=== PATIENT | male | born 1980 | race Caucasian/White ===

== ENCOUNTER 2022-05-22 13:18 | Emergency (ER) | payer SELFPAY ==
[~2022-05-22] VITALS: Ht 187 cm; Wt 104.3 kg
[2022-05-22] MEDS ORDERED: fentaNYL INJ 100 MCG/2 ML AMP IVP STA (13:34)
[2022-05-22] MEDS ORDERED: ONDANSETRON 4 MG/2 ML (SDV) Z0FRAN IVP ONE (13:45)
[2022-05-22 13:47] LABS: HEMATOCRIT 46 % (40-54); HEMOGLOBIN 14.9 g/dL (13.3-17.7); MEAN CORPUSCULAR HEMOGLOBIN 30 pg (25-34); MEAN CORPUSCULAR HGB CONC 33 g/dL (32-36); MEAN CORPUSCULAR VOLUME 92 fL (80-99); MEAN PLATELET VOLUME 8.5 fL (9.0-12.2); PLATELET COUNT 225 10^3/uL (130-400); WHITE BLOOD COUNT 4.8 10^3/uL (4.3-11.0)
[2022-05-22 13:50] LABS: ALBUMIN 4.8 GM/DL (3.2-4.5); CHLORIDE 102 MMOL/L (98-107); SODIUM 139 MMOL/L (135-145)
[2022-05-22 13:51] LABS: CALCIUM 9.9 MG/DL (8.5-10.1)
[2022-05-22 13:52] LABS: GLUCOSE 86 MG/DL (70-105); TOTAL PROTEIN 7.9 GM/DL (6.4-8.2)
[2022-05-22 13:53] LABS: CARBON DIOXIDE 24 MMOL/L (21-32)
[2022-05-22 13:56] LABS: ALKALINE PHOSPHATASE 71 U/L (40-136); CREATININE SERUM 1.12 MG/DL (0.60-1.30); GFR ESTIMATED 84
[2022-05-22 13:57] LABS: BILIRUBIN,DIRECT 0.1 MG/DL (0.0-0.3); BUN/CREATININE RATIO 12
[2022-05-22 13:59] LABS: ALANINE AMINOTRANSFERASE 23 U/L (0-55)
[2022-05-22] MEDS ORDERED: IOHEXOL 350 MG/ML 100 ML (OMNIPAQUE 350) VIAL IV ONE (14:00)
[2022-05-22] MEDS ORDERED: HOLD METFORMIN - RECEIVED CONTRAST 20 ML VIAL IV SCH (14:00)
[2022-05-22] MEDS ORDERED: HYDROmorphone 2 MG/ML VIAL (DILAUDID) IV ONE ×4 (14:00→17:30)
[2022-05-22] MEDS ORDERED: NS 100 ML (IVPB) BAG IV ONE (14:00)
[2022-05-22 14:04] LABS: BILIRUBIN,INDIRECT 0.3 MG/DL; BILIRUBIN,TOTAL 0.4 MG/DL (0.1-1.0)
[2022-05-22] MEDS ORDERED: ORPHENADRINE 60 MG/2 ML (NORFLEX) AMP (ED ONLY) IV ONE (14:15)
--- NOTE | 2022-05-22 14:43 | Diagnostic Imaging Report ---
PROCEDURE: CT thoracic and lumbar spine without contrast. TECHNIQUE: Multiple contiguous axial images were obtained through the thoracic and lumbar spine without the use of intravenous contrast. Sagittal and coronal reformations were then performed. All CT scans use one or more of the following dose optimizing techniques: automated exposure control, MA and/or KvP adjustment based on a patient size and exam type, or iterative reconstruction. INDICATION: Patient had a 10' fall with spinal pain T-spine: Partially visualized lower cervical ACDF noted. The thoracic vertebral statures are normal. Their alignment is anatomic. The neural arch is intact. The visualized posterior ribs segments and transverse processes intact. There is no paravertebral mass, hemorrhage or fluid collection evident. No significant canal stenosis. The facet relationships normal. Visualized portions of the lungs, mediastinum and pleura unremarkable. There is a small hiatal hernia. Lumbar spine: Note is made of bilateral renal calculi nonobstructing. Lumbar statures normal. The pedicles and pars intact. No acute or suspicious endplate irregularity. Transverse processes and neural arch is intact. No significant stenosis. The alignment normal. IMPRESSION: No thoracolumbar spinal injury demonstrated. Hiatal hernia and nephrolithiasis noted incidentally. Dictated by: Dictated on workstation # [id number]
--- NOTE | 2022-05-22 14:52 | Diagnostic Imaging Report ---
PROCEDURE: CT chest, abdomen, and pelvis with contrast. TECHNIQUE: Multiple contiguous axial images were obtained through the chest, abdomen, and pelvis after the administration of intravenous contrast. Auto Exposure Controls were utilized during the CT exam to meet ALARA standards for radiation dose reduction. INDICATION: Trauma, fall from height. COMPARISON: No prior studies are available for comparison. FINDINGS: CT CHEST: No mediastinal hematoma is identified. No pericardial or pleural fluid is detected. No pulmonary contusions or pneumothorax is detected. The bony structures are intact. IMPRESSION: Unremarkable CT of the chest. CT ABDOMEN AND PELVIS: No focal liver or splenic laceration is identified. The gallbladder is unremarkable. The pancreas, adrenal glands, and kidneys are unremarkable. The aorta is nonaneurysmal. The bowel loops are of normal caliber. No free fluid or evidence of hemoperitoneum is detected. The bladder is decompressed. The prostate is unremarkable. The bony structures are nonacute. IMPRESSION: No evidence of abdominal or pelvic visceral injury. Dictated by: Dictated on workstation # [id number]
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
[2022-05-22] MEDS ORDERED: methylPREDNISolone 125 MG (Solu-MEDROL) VIAL IVP ONE (17:30)
[2022-05-22] MEDS ORDERED: KETOROLAC 30 MG/ML VIAL IVP ONE (17:30)
[2022-05-22 17:48] LABS: BILIRUBIN,URINE NEGATIVE (NEGATIVE); CLARITY,URINE SL CLOUDY; COLOR,URINE YELLOW; GLUCOSE, URINE (UA) NEGATIVE (NEGATIVE); KETONES,URINE NEGATIVE (NEGATIVE); LEUKOCYTE ESTERASE ,URINE NEGATIVE (NEGATIVE); NITRITE,URINE NEGATIVE (NEGATIVE); PH,URINE 5.5 (5-9); PROTEIN,URINE NEGATIVE (NEGATIVE)
[2022-05-22] MEDS ORDERED: METH4TAB10 PO (17:48)
[2022-05-22] MEDS ORDERED: OXYC1TAB87 PO (17:48)
[2022-05-22] MEDS ORDERED: CYCL10TA25 PO (17:48)
[2022-05-22 18:06] LABS: AMPHETAMINE SCREEN, URINE NEGATIVE (NEGATIVE); BARBITURATE SCREEN URINE NEGATIVE (NEGATIVE); BENZODIAZEPINES SCREEN URINE NEGATIVE (NEGATIVE); CANNABINOID SCREEN, URINE NEGATIVE (NEGATIVE); COCAINE SCREEN URINE NEGATIVE (NEGATIVE); METHADONE STAT NEGATIVE (NEGATIVE); OPIATE SCREEN URINE POSITIVE (NEGATIVE); OXYCODONE STAT NEGATIVE (NEGATIVE); PROPOXYPHENE STAT NEGATIVE (NEGATIVE); TRICYCLIC ANTIDEPRESSANTS SCRE NEGATIVE (NEGATIVE)
[2022-05-22 18:11] LABS: BACTERIA,URINE NEGATIVE /HPF
[2022-05-22 18:15] VITALS: BP 132/90
== END 2022-05-22 18:14 | disposition home or self-care (01) ==
LOC: ER 13:21
DX: S30.0XXA Contusion of lower back and pelvis, initial encounter (principal); M54.16 Radiculopathy, lumbar region; M54.6 Pain in thoracic spine; F17.210 Nicotine dependence, cigarettes, uncomplicated; W11.XXXA Fall on and from ladder, initial encounter
CPT/HCPCS: 71260; 72128; 72131; 74177; 80048; 80076; 80306; 81000; 85027; 93041; 99285; G0480; 36415; 80320

== ENCOUNTER 2022-06-14 21:16 | Emergency (ER) | payer SELFPAY ==
[~2022-06-14 21:16] MED LIST: CYCL10TA25 PO; METH4TAB10 PO; OXYC1TAB87 PO
[2022-06-14 21:48] VITALS: BP 160/88
[2022-06-14] MEDS ORDERED: ONDANSETRON 4 MG/2 ML (SDV) Z0FRAN IVP ONE (23:15)
[2022-06-14] MEDS ORDERED: fentaNYL INJ 100 MCG/2 ML AMP IVP ONE (23:15)
--- NOTE | 2022-06-14 23:15 | ED Fall/Injury ---
General Chief Complaint: Trauma-Non Activation Stated Complaint: FALL - BACK/ NECK PAIN Nursing Triage Note: FALL FROM STARIS. C/O BACK PAIN Source: patient Exam Limitations: no limitations History of Present Illness Date Seen by Provider: Jun 14, 2022 Time Seen by Provider: 22:50 Initial Comments This 41-year-old gentleman presents to the emergency room with complaints of pain in the neck and left shoulder after a fall on stairs. He reports the incident occurred around [id number]. His right foot slipped out from underneath him while walking down the stairs causing him to fall backward and onto his left side. He then slid down the stairs. He describes no loss of consciousness. 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 He has pain specifically in the left shoulder and the neck. He has had prior cervical spine surgery with scars evident on exam. He has not taken any medications for the pain and reports that he came directly to the emergency room after the incident happened. C-collar was applied during my assessment. He is grossly neurologically intact during interview and exam. He appeared in distress during my interview. However, from my seated work station around the corner, no distress was observed when staff was not physically present in his [facility] [employer] [place]. Of note, patient was also seen by me in this ER May 22, 2022 for severe lower back pain after a fall off a ladder. There was concern for serious lumbar and/or pelvic injury. No injury was found on imaging or exam and patient walked out of the ER upon discharge in stable condition. He required and extraordinary amount of opioid pain medication during that encounter including multiple doses of Dilauded. Based on his demeanor during the visit, it was surprising not injuries were found on exam or imaging. Allergies and Home Medications Allergies Coded Allergies: Benzodiazepines (Verified Adverse Reaction, Intermediate, Agitation, 05/23/22) Paradoxical effect, causes agitation NSAIDS (Non-Steroidal Anti-Inflamma (Verified Adverse Reaction, Intermediate, Gastric irritation, 05/23/22) Exacerbation of gastroesophageal reflux and gastritis Patient Home Medication List Home Medication List Reviewed: Yes Cyclobenzaprine HCl (Cyclobenzaprine HCl) 10 Mg Tablet, 10 MG PO Q8H PRN for SPASMS Prescribed by: WENDY PFEIFFER on 05/22/22 684 Methylprednisolone (Methylprednisolone Dose Pack) 4 Mg Tab.ds.pk, 4 MG PO UD Prescribed by: WENDY PFEIFFER on 05/22/221747 Oxycodone HCl/Acetaminophen (Percocet 5-325 mg Tablet) 1 Each Tablet, 1-2 TAB PO Q4H PRN for PAIN-MODERATE (5-7) Prescribed by: WENDY PFEIFFER on 05/22/221748 Review of Systems Review of Systems Constitutional: no symptoms reported Eyes: No Symptoms Reported Ears, Nose, Mouth, Throat: no symptoms reported Respiratory: no symptoms reported Cardiovascular: no symptoms reported Gastrointestinal: nausea Genitourinary: no symptoms reported Musculoskeletal: see HPI Skin: no symptoms reported Psychiatric/Neurological: See HPI Past Gtaaknw-Fmleao-Abhbcc Hx Patient Social History Tobacco Use?: Yes Tobacco type used: Cigarettes Smoking Status: Current Everyday Smoker Substance use?: No Alcohol Use?: No Pt feels they are or have been: No Past Medical History Surgery/Hospitalization HX: pmh: kidney stones, hernia sx, cerviacl spin sx, testicular torsion sx. Surgeries: Yes Abdominal, Orthopedic, Testicular Respiratory: No Cardiac: No Neurological: Yes Traumatic Brain Injury Reproductive Disorders: No Genitourinary: No Gastrointestinal: Yes Gastroesophageal Reflux Musculoskeletal: Yes (Chronic pain from prior spine injuries and surgeries) Endocrine: No HEENT: No Cancer: No Psychosocial: No Integumentary: No Physical Exam Vital Signs Vital Signs - First Documented 06/14/22 21:48 Temp 36.7 Pulse 90 Resp 18 B/P (MAP) 160/88 (112) Pulse Ox 98 O2 Delivery Room Air Capillary Refill : Less Than 3 Seconds Height, Weight, BMI Height: '" Weight: lbs. oz. kg; 29.00 BMI Method: General Appearance: WD/WN, mild distress HEENT: PERRL/EOMI, normal ENT inspection Neck: tender midline (posterior cervical spine), other (Surgical scar on posterior neck) Cardiovascular: regular rate, rhythm, no edema, no murmur Respiratory: lungs clear, normal breath sounds, no respiratory distress Extremities: normal inspection, other (Tenderness over the left shoulder) Neurologic/Psychiatric: no motor/sensory deficits, alert, oriented x 3, other (Agitated) Skin: normal color, warm/dry Suly Coma Score Best Eye Response: (4) Open Spontaneously Best Verbal Response: (5) Oriented Best Motor Response: (6) Obeys Commands Crane Total: 15 Progress/Results/Core Measures Results/Orders Lab Results Laboratory Tests Test 06/14/22 23:12 06/14/22 23:29 Range/Units White Blood Count 4.6 4.3-11.0 10^3/uL Red Blood Count 4.38 4.30-5.52 10^6/uL Hemoglobin 12.9 L 13.3-17.7 g/dL Hematocrit 40 40-54 % Mean Corpuscular Volume 90 80-99 fL Mean Corpuscular Hemoglobin 30 25-34 pg Mean Corpuscular Hemoglobin Concent 33 32-36 g/dL Red Cell Distribution Width 13.4 10.0-14.5 % Platelet Count 203 130-400 10^3/uL Mean Platelet Volume 9.1 9.0-12.2 fL Immature Granulocyte % (Auto) 1 % Neutrophils (%) (Auto) 55 42-75 % Lymphocytes (%) (Auto) 29 12-44 % Monocytes (%) (Auto) 12 0-12 % Eosinophils (%) (Auto) 2 0-10 % Basophils (%) (Auto) 1 0-10 % Neutrophils # (Auto) 2.5 1.8-7.8 10^3/uL Lymphocytes # (Auto) 1.3 1.0-4.0 10^3/uL Monocytes # (Auto) 0.6 0.0-1.0 10^3/uL Eosinophils # (Auto) 0.1 0.0-0.3 10^3/uL Basophils # (Auto) 0.0 0.0-0.1 10^3/uL Immature Granulocyte # (Auto) 0.0 0.0-0.1 10^3/uL Sodium Level 136 135-145 MMOL/L Potassium Level 4.2 3.6-5.0 MMOL/L Chloride Level 104 98-107 MMOL/L Carbon Dioxide Level 21 21-32 MMOL/L Anion Gap 11 5-14 MMOL/L Blood Urea Nitrogen 17 7-18 MG/DL Creatinine 0.90 0.60-1.30 MG/DL Estimat Glomerular Filtration Rate 109 BUN/Creatinine Ratio 19 Glucose Level 87 70-105 MG/DL Calcium Level 9.4 8.5-10.1 MG/DL Corrected Calcium 9.1 8.5-10.1 MG/DL Total Bilirubin 0.3 0.1-1.0 MG/DL Aspartate Amino Transf (AST/SGOT) 21 5-34 U/L Alanine Aminotransferase (ALT/SGPT) 16 0-55 U/L Alkaline Phosphatase 69 40-136 U/L Total Protein 7.1 6.4-8.2 GM/DL Albumin 4.4 3.2-4.5 GM/DL Serum Alcohol < 10 <10 MG/DL Urine Opiates Screen NEGATIVE NEGATIVE Urine Oxycodone Screen NEGATIVE NEGATIVE Urine Methadone Screen NEGATIVE NEGATIVE Urine Propoxyphene Screen NEGATIVE NEGATIVE Urine Barbiturates Screen NEGATIVE NEGATIVE Ur Tricyclic Antidepressants Screen NEGATIVE NEGATIVE Urine Phencyclidine Screen NEGATIVE NEGATIVE Urine Amphetamines Screen NEGATIVE NEGATIVE Urine Methamphetamines Screen NEGATIVE NEGATIVE Urine Benzodiazepines Screen NEGATIVE NEGATIVE Urine Cocaine Screen NEGATIVE NEGATIVE Urine Cannabinoids Screen NEGATIVE NEGATIVE My Orders Orders - WENDY BRADSHAW MD Alcohol (06/14/22 23:07) Cbc With Automated Diff (06/14/22 23:07) Comprehensive Metabolic Panel (06/14/22 23:07) Drug Screen Stat (Urine) (06/14/22 23:07) Ed Iv/Invasive Line Start (06/14/22 23:07) Fentanyl Inj (Sublimaze Injection) (06/14/22 23:15) Ct Head/Cervical Spine Wo (06/14/22 23:08) Shoulder, Left, 3 Views (06/14/22 23:08) Ondansetron Injection (Zofran Injectio (06/14/22 23:15) Ketorolac Injection (Toradol Injection) (06/15/22 00:30) Medications Given in ED Vital Signs/I&O 06/14/22 21:48 Temp 36.7 Pulse 90 Resp 18 B/P (MAP) 160/88 (112) Pulse Ox 98 O2 Delivery Room Air Blood Pressure Mean: 112 Progress Progress Note #1: Time: 23:23 Progress Note Patient was interviewed and examined. C-collar was applied. IV was established. Labs were drawn. Pain is being treated with fentanyl 50 mcg IV. Imaging studies of the C-spine and the left shoulder are being obtained. Progress Note #2: Time: :25 Progress Note Work-up was pursued including CT of the head and cervical spine and x-rays of the left shoulder. These were viewed by me and [facility] report of the head and cervical spine was reviewed. No acute injuries were identified. Patient was treated with fentanyl and later Toradol. Labs including CBC, CMP, and toxicology screen were unremarkable. It was noted by [facility] emergency room staff that a patient of the similar name, age and description was seen at their facility earlier in the evening. Dr. Harris logged onto [employer] and the default screen showed the [facility] tracker board upon his login. He noted the similar age and name of a patient he had seen earlier by the name of Kuldip Masters 39 years of age. There was concern that this was actually the same individual and treating him again may present significant health risks. He therefore brought the similarities to the attention of this provider. Indeed it was found that the 2 patients had nearly identical names, demographics, age, and physical description. Tattoos and clothing were identical. After work-up was complete, I confronted the patient about his prior visit at [facility]. Patient did not deny that he had been at [facility] despite his earlier assertion that he came directly to the [facility] ER after the injury. He essentially admitted to lying about the history of the accident and his visit to the ER. The history he gave at the ER was the same story about falling off a ladder that he gave during his first visit to the [facility] ER on May 22. I inquired about his behavior and why he was providing fictitious identification and demographics. He stated he had long-term problems with chronic pain. He did not go so far as to admit that he had any opioid dependence or other addiction issues. I explained to him that his behavior was fraudulent and very dangerous from a medical perspective. Such behavior sabotages his own healthcare and results in unnecessary testing, cost, etc. He expressed understanding. I inquired if any trauma truly happened tonight. He states that he did fall on the stairs but admitted that he lied about falling off a ladder during his [facility] encounter. He had given a similar story about falling off a ladder when he saw me in the [facility] emergency room previously. Of note, his urine toxicology screen was negative for even medications that were given parenterally during the ER visits. This would suggest that he diluted or swapped the urine specimen. Discussion about these issues was witnessed by the lighthouse keeper, Annette Palomo for validity and accountability purposes. Patient was discharged without further treatment. It was noted that the distress he displayed previously was not present during these discussions. While his discharge papers were being printed, he walked out of the building with his IV still intact. He did not take or sign his papers. 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 I did express my desire to help the patient with real problems he may be experiencing. I offered him contact information for [facility] and the [facility] and explained to him the services available to him at these places. He asserted that he is truly from [place] but plans to be in the [facility] are indefinitely. I urged him to establish with a primary care provider if he needs help with chronic pain, opioid dependence, addiction, etc. He expressed understanding. Due to patient's blatant lying and deceptive behavior and lack of any evidence of injury on exams or imaging, no prescription pain medication was provided. Diagnostic Imaging Diagonstic Imaging: Xray Plain Films/CT/US/NM/MRI: other (Left shoulder) Comments Left shoulder x-rays were reviewed by me. Radiologist's report not yet available. No acute fractures or dislocations were appreciated by my interpretation. Diagonstic Imaging: CT Plain Films/CT/US/NM/MRI: c-spine, head Comments CT head and C-spine viewed by me. No acute fractures or dislocations were appreciated by my interpretation. No intracranial injuries were seen. [facility] report was reviewed which also reported no acute injuries. Departure Impression Primary Impression: Fall on stairs Qualified Codes: W10.9XXA - Fall (on) (from) unspecified stairs and steps, initial encounter Additional Impressions: Neck pain Left shoulder pain Qualified Codes: M25.512 - Pain in left shoulder Drug-seeking behavior Disposition: 01 HOME, SELF-CARE Condition: Stable Departure-Patient Inst. Decision time for Depature: 01:18 Referrals: NO,LOCAL PHYSICIAN (PCP/Family) Primary Care Physician Patient Instructions: CHRONIC PAIN Add. Discharge Instructions: You need to establish with a primary care provider as soon as possible for evaluation and treatment of your chronic pain. The [facility] would be a good resource for you as they have a full medical clinic, behavioral health resources, and substance abuse treatment programs. Their number is [phone]. For opioid dependence or other mental/behavioral health issues you may also utilize [facility]. Their number is [phone]. You may take Tylenol (acetaminophen) 1000 mg every 6 hours as needed for pain. You may also ice affected areas in 20-minute intervals. Return to care if you have worsening of your condition or new symptoms. All discharge instructions reviewed with patient and/or family. Voiced understanding. WENDY BRADSHAW MD Jun 14, 2022 23:15
[2022-06-14 23:22] LABS: BASOPHILS % (AUTO) 1 % (0-10); EOSINOPHILS # (AUTO) 0.1 10^3/uL (0.0-0.3); EOSINOPHILS % (AUTO) 2 % (0-10); HEMATOCRIT 40 % (40-54); HEMOGLOBIN 12.9 g/dL (13.3-17.7); LYMPHOCYTES # (AUTO) 1.3 10^3/uL (1.0-4.0); LYMPHOCYTES % (AUTO) 29 % (12-44); MEAN CORPUSCULAR HEMOGLOBIN 30 pg (25-34); MEAN CORPUSCULAR HGB CONC 33 g/dL (32-36); MEAN CORPUSCULAR VOLUME 90 fL (80-99); MEAN PLATELET VOLUME 9.1 fL (9.0-12.2); MONOCYTES # (AUTO) 0.6 10^3/uL (0.0-1.0); MONOCYTES % (AUTO) 12 % (0-12); NEUTROPHILS # (AUTO) 2.5 10^3/uL (1.8-7.8); NEUTROPHILS % (AUTO) 55 % (42-75); PLATELET COUNT 203 10^3/uL (130-400); WHITE BLOOD COUNT 4.6 10^3/uL (4.3-11.0)
[2022-06-14 23:38] LABS: ALBUMIN 4.4 GM/DL (3.2-4.5); CHLORIDE 104 MMOL/L (98-107); POTASSIUM 4.2 MMOL/L (3.6-5.0); SODIUM 136 MMOL/L (135-145)
[2022-06-14 23:39] LABS: CALCIUM 9.4 MG/DL (8.5-10.1)
[2022-06-14 23:41] LABS: GLUCOSE 87 MG/DL (70-105); TOTAL PROTEIN 7.1 GM/DL (6.4-8.2)
[2022-06-14 23:42] LABS: BILIRUBIN,TOTAL 0.3 MG/DL (0.1-1.0); CARBON DIOXIDE 21 MMOL/L (21-32)
[2022-06-14 23:44] LABS: ALKALINE PHOSPHATASE 69 U/L (40-136); GFR ESTIMATED 109
[2022-06-14 23:45] LABS: BUN/CREATININE RATIO 19
[2022-06-14 23:47] LABS: ALANINE AMINOTRANSFERASE 16 U/L (0-55)
[2022-06-14 23:59] LABS: AMPHETAMINE SCREEN, URINE NEGATIVE (NEGATIVE); BARBITURATE SCREEN URINE NEGATIVE (NEGATIVE); BENZODIAZEPINES SCREEN URINE NEGATIVE (NEGATIVE); CANNABINOID SCREEN, URINE NEGATIVE (NEGATIVE); COCAINE SCREEN URINE NEGATIVE (NEGATIVE); METHADONE STAT NEGATIVE (NEGATIVE); OPIATE SCREEN URINE NEGATIVE (NEGATIVE); OXYCODONE STAT NEGATIVE (NEGATIVE); PROPOXYPHENE STAT NEGATIVE (NEGATIVE); TRICYCLIC ANTIDEPRESSANTS SCRE NEGATIVE (NEGATIVE)
[2022-06-15] MEDS ORDERED: KETOROLAC 30 MG/ML VIAL IVP ONE (00:30)
--- NOTE | 2022-06-15 06:35 | Diagnostic Imaging Report ---
PROCEDURE: CT head and CT cervical spine without contrast. TECHNIQUE: Multiple contiguous axial images were obtained through the brain and cervical spine without the use of intravenous contrast. Sagittal and coronal reformations through the cervical spine were then performed. Auto Exposure Controls were utilized during the CT exam to meet ALARA standards for radiation dose reduction. INDICATION: Fall with head and neck pain. No prior studies are available for comparison. CT HEAD: The ventricles and sulci are within normal limits. There is no sulcal effacement or midline shift. No acute intra-axial or extra-axial hemorrhage is detected. Cisterns are patent. Visualized paranasal sinuses are clear. IMPRESSION: No acute intracranial process is detected. CT CERVICAL SPINE: Extensive postsurgical changes are noted with anterior plate and screws extending from C4 to T1. Posterior instrumented fusion is noted from approximately C5-T1. Hardware appears intact. Bony structures are intact. Prevertebral tissues are unremarkable. No fractures are seen. Odontoid is unremarkable. IMPRESSION: Postop changes of anterior and posterior instrumented fusion. No acute bony abnormality is detected. Dictated by: Dictated on workstation # [id number]
--- NOTE | 2022-06-15 07:12 | Diagnostic Imaging Report ---
INDICATION: Shoulder pain. FINDINGS: There are prior operative changes of the cervical spine with a 360 degree of cervical thoracic fusion partially visualized. There are some findings of mild spurring at the AC joint. The AC joint alignment appears maintained. There is no glenohumeral joint dislocation present. There is no evidence of a glenohumeral joint dislocation. Morphology of the humeral head appears appropriate. The visualized ribs are intact without pneumothorax. IMPRESSION: 1. AC joint osteoarthritis. Shoulder alignment normal. No acute fracture evident. 2. Prior operative changes of the cervicothoracic spinal fusion. Dictated by: Dictated on workstation # [id number]
== END 2022-06-15 01:26 | disposition home or self-care (01) ==
LOC: EDUNIT# 21:16 → ER 21:19
DX: M54.2 Cervicalgia (principal); M25.512 Pain in left shoulder; F17.210 Nicotine dependence, cigarettes, uncomplicated; Z76.5 Malingerer [conscious simulation]; Z88.6 Allergy status to analgesic agent; W10.9XXA Fall (on) (from) unspecified stairs and steps, initial encounter; Y93.01 Activity, walking, marching and hiking
CPT/HCPCS: 70450; 72125; 73030; 80053; 80306; 85025; 99284; G0480; 36415; 80320